=== PATIENT | male | born 1960 | race Caucasian/White ===

== ENCOUNTER 2023-11-11 09:00 | Outpatient (CLI) | payer OTHER, SELFPAY | END 2023-11-11 09:01 | disposition home or self-care (01) | PROVIDERS: PCP Family Medicine; Visit Provider Family Medicine | DX: R31.9 Hematuria, unspecified (principal); Z13.220 Encounter for screening for lipoid disorders; Z12.5 Encounter for screening for malignant neoplasm of prostate | CPT/HCPCS: 80061; 87086; G0103 ==

== ENCOUNTER 2023-11-13 14:27 | Outpatient (CLI) | payer OTHER, SELFPAY ==
--- NOTE | 2023-11-13 15:00 | CRLHL7_ITS ---
For Patients: As a result of the Century Cures Act, medical imaging exams and procedure reports are released immediately into your electronic medical record. You may view this report before your referring provider. If you have questions, please contact your health care provider. INDICATION: Hematuria. TECHNIQUE: CT abdomen and pelvis urogram without and with 100 cc Isovue 350 IV contrast. Contrast images were obtained in the nephrographic and delayed phases. COMPARISON: None. FINDINGS: KIDNEYS: The unenhanced images demonstrate no kidney or ureteral stones. The kidneys are normal in caliber and demonstrate normal uptake and excretion of IV contrast. No masses. The renal collecting systems and ureters are symmetrical, normal in caliber, and without evidence of mass or filling defect. URINARY BLADDER: The urinary bladder is normal in caliber and without evidence of mass, wall thickening, or inflammation. Prostate calcifications are present. The prostate measures 4.0 x 4.2 x 3.7 cm. OTHER: GI tract is normal in caliber and appearance. Mild fatty liver. Gallbladder normal. Spleen, pancreas, and adrenal glands are normal. No mass or adenopathy. Pars defects at L5 noted. No vertebral body compression fracture. Mild scarring noted within both lung bases. IMPRESSION: 1. Unremarkable CT urogram. No findings to explain hematuria. 2. Prostate calcification. Please note that all CT scans at this facility use dose modulation, iterative reconstruction, and/or weight-based dosing when appropriate to reduce radiation dose to as low as reasonably achievable. Dictated by Da Ford MD @ 11/13/2023 3:48:13 PM (Electronically Signed)
== END 2023-11-13 14:28 | disposition home or self-care (01) ==
LOC: CT 14:27
PROVIDERS: PCP Family Medicine; Visit Provider Family Medicine
DX: R31.9 Hematuria, unspecified (principal)
CPT/HCPCS: 74178; Q9967

== ENCOUNTER 2024-03-22 09:13 | Outpatient (CLI) | payer OTHER, SELFPAY | END 2024-03-22 09:14 | disposition home or self-care (01) | LOC: LKVREF 09:15 | PROVIDERS: PCP Family Medicine; Visit Provider Family Medicine | DX: Z01.818 Encounter for other preprocedural examination (principal); C61 Malignant neoplasm of prostate | CPT/HCPCS: 80048 ==